=== PATIENT | male | born 1960 | race Caucasian/White ===

== ENCOUNTER 2017-01-21 19:20 | Emergency (ER) | payer SELFPAY ==
[~2017-01-21] VITALS: Ht 167.6 cm; Wt 72.9 kg
[~2017-01-21 19:20] MED LIST: ACID1TAB7 PO; AMLO10TA2 PO; AMLO5TAB2 PO; AMOX1TAB12 PO; ASPI325T17 PO; DOCU-131 PO; FERR325T18 PO; GABA600T2 PO; GLIM4TAB PO; HYDR-3237 PO; HYDR-3343 PO; INSU100I28 SQ-INSULIN; LISI-170 PO; LISI40TA PO; METF10002 PO; METO25TA35 PO; OXYC20TA42 PO; POLY17PO5 PO; SENN1TAB7 PO; SULF-169 PO; TRAM50TA2 PO
[2017-01-21] MEDS ORDERED: HYDROcodone/APAP 10/325 MG TABLET PO STA (19:39)
[2017-01-21] MEDS ORDERED: HYDROmorphone 1 MG/ML, 1ML IVPush PRN (20:00)
[2017-01-21] MEDS ORDERED: LIDOCAINE 1%, 20ML SQ ONE (20:00)
[2017-01-21] MEDS ORDERED: CLINDAMYCIN PMX 600MG/50ML 50 ML IVPB ONE (20:00)
[2017-01-21] MEDS ORDERED: SODIUM CHLORIDE FLUSH 10ML SYR IVF ONE (20:00)
[2017-01-21] MEDS ORDERED: CLINDAMYCIN PMX 600MG/50ML 50 ML ONE (20:06)
[2017-01-21] MEDS ORDERED: HYDROmorphone 1 MG/ML, 1ML ONE (20:06)
[2017-01-21] MEDS ORDERED: ONDANSETRON 2MG/ML, 2ML ONE (20:06)
[2017-01-21 20:08] LABS: HEMATOCRIT 36.5 % (39.2-51.8); HEMOGLOBIN 12.1 g/dL (13.7-18.0); WHITE BLOOD COUNT 14.5 x10^3/uL (3.4-10)
[2017-01-21] MEDS ORDERED: LIDOCAINE 1%, 20ML ONE (20:17)
[2017-01-21 20:19] LABS: BLOOD UREA NITROGEN 11 mg/dL (7-18)
[2017-01-21] MEDS ORDERED: ONDANSETRON 2MG/ML, 2ML IVPush ONE (21:00)
[2017-01-21 21:37] VITALS: BP 154/92
== END 2017-01-21 21:40 | disposition home or self-care (01) ==
LOC: ED 21:15
DX: L03.114 Cellulitis of left upper limb (principal); I10 Essential (primary) hypertension; E11.9 Type 2 diabetes mellitus without complications
CPT/HCPCS: 36415; 80048; 82040; 85025; 96365; 96375; 99284; J1170; J2405

== ENCOUNTER 2017-01-22 13:49 | Emergency (ER) | payer OTHER ==
[~2017-01-22] VITALS: Ht 167.6 cm; Wt 76.2 kg
[2017-01-22 13:50] VITALS: BP 119/75
[2017-01-22] MEDS ORDERED: HYDROcodone/APAP 5/325 TABLET ONE (14:19)
[2017-01-22] MEDS ORDERED: HYDROcodone/APAP 5/325 TABLET PO ONE (14:30)
[2017-01-22] MEDS ORDERED: ONDANSETRON ODT 4 MG ONE (14:39)
[2017-01-22] MEDS ORDERED: ONDANSETRON ODT 4 MG PO ONE (15:00)
== END 2017-01-22 14:46 | disposition home or self-care (01) ==
LOC: ED 14:41
DX: L02.414 Cutaneous abscess of left upper limb (principal); I10 Essential (primary) hypertension; E11.9 Type 2 diabetes mellitus without complications
CPT/HCPCS: 99283

== ENCOUNTER 2017-01-23 08:01 | Emergency (ER) | payer OTHER ==
[~2017-01-23] VITALS: Ht 167.6 cm; Wt 72.7 kg
[2017-01-23 08:11] VITALS: BP 163/97
[2017-01-23] MEDS ORDERED: IBUPROFEN 200 MG TABLET PO ONE (09:00)
[2017-01-23] MEDS ORDERED: HYDROcodone/APAP 5/325 TABLET PO ONE (09:00)
[2017-01-23] MEDS ORDERED: IBUPROFEN 200 MG TABLET ONE (09:04)
[2017-01-23] MEDS ORDERED: HYDROcodone/APAP 5/325 TABLET ONE (09:05)
== END 2017-01-23 09:16 | disposition home or self-care (01) ==
LOC: ED 08:19
DX: L03.114 Cellulitis of left upper limb (principal); I10 Essential (primary) hypertension; E11.9 Type 2 diabetes mellitus without complications
CPT/HCPCS: 99283

== ENCOUNTER 2017-01-24 09:45 | Emergency (ER) | payer OTHER ==
[~2017-01-24] VITALS: Ht 167.6 cm; Wt 75.0 kg
[2017-01-24 11:10] VITALS: BP 182/122
== END 2017-01-24 11:45 | disposition home or self-care (01) ==
LOC: ED 11:38
DX: Z76.0 Encounter for issue of repeat prescription (principal); Z48.01 Encounter for change or removal of surgical wound dressing; I10 Essential (primary) hypertension; E11.9 Type 2 diabetes mellitus without complications
CPT/HCPCS: 99283

== ENCOUNTER 2017-01-26 04:05 | Emergency (ER) | payer OTHER ==
[~2017-01-26] VITALS: Ht 167.6 cm; Wt 75.7 kg
[2017-01-26 06:43] VITALS: BP 204/114
== END 2017-01-26 06:46 | disposition home or self-care (01) ==
LOC: ED 05:38
DX: Z48.01 Encounter for change or removal of surgical wound dressing (principal); Z76.0 Encounter for issue of repeat prescription; E11.9 Type 2 diabetes mellitus without complications; I10 Essential (primary) hypertension
CPT/HCPCS: 93005; 99283

== ENCOUNTER → 2018-01-30 | Outpatient (CLI) | payer MEDICARE ==
[~2018-01-30] MED LIST changes: -AMLO10TA2 PO; +AMLO10TA6 PO; -AMLO5TAB2 PO; +AMLO5TAB7 PO; -SENN1TAB7 PO; +SENN1TAB8 PO
== END | disposition home or self-care (01) ==
LOC: WOUND 08:58
PROVIDERS: ATTEND Family Medicine
DX: T87.89 Other complications of amputation stump (principal); E11.621 Type 2 diabetes mellitus with foot ulcer; L97.511 Non-pressure chronic ulcer of other part of right foot limited to breakdown of skin; L84 Corns and callosities; I10 Essential (primary) hypertension; Y83.5 Amputation of limb(s) as the cause of abnormal reaction of the patient, or of later complication, without mention of misadventure at the time of the procedure
CPT/HCPCS: 97597; 99215

== ENCOUNTER → 2018-02-06 | Outpatient (CLI) | payer MEDICARE | END | disposition home or self-care (01) | LOC: WOUND 10:47 | PROVIDERS: ATTEND Family Medicine | DX: T87.89 Other complications of amputation stump (principal); E11.621 Type 2 diabetes mellitus with foot ulcer; L97.511 Non-pressure chronic ulcer of other part of right foot limited to breakdown of skin; I10 Essential (primary) hypertension; Y83.5 Amputation of limb(s) as the cause of abnormal reaction of the patient, or of later complication, without mention of misadventure at the time of the procedure | CPT/HCPCS: 97597 ==

== ENCOUNTER → 2018-02-13 | Outpatient (CLI) | payer MEDICARE | END | disposition home or self-care (01) | LOC: WOUND 12:54 | PROVIDERS: ATTEND Family Medicine | DX: T87.89 Other complications of amputation stump (principal); E11.621 Type 2 diabetes mellitus with foot ulcer; L97.511 Non-pressure chronic ulcer of other part of right foot limited to breakdown of skin; L84 Corns and callosities; I10 Essential (primary) hypertension; Y83.5 Amputation of limb(s) as the cause of abnormal reaction of the patient, or of later complication, without mention of misadventure at the time of the procedure | CPT/HCPCS: 97597 ==

== ENCOUNTER → 2018-03-13 | Outpatient (CLI) | payer MEDICARE ==
[~2018-03-13] MED LIST changes: +AMLO-150 PO; -AMLO5TAB7 PO
== END | disposition home or self-care (01) ==
LOC: WOUND 13:34
PROVIDERS: ATTEND Family Medicine
DX: T87.89 Other complications of amputation stump (principal); E11.621 Type 2 diabetes mellitus with foot ulcer; L97.512 Non-pressure chronic ulcer of other part of right foot with fat layer exposed; L84 Corns and callosities; I10 Essential (primary) hypertension; Y83.5 Amputation of limb(s) as the cause of abnormal reaction of the patient, or of later complication, without mention of misadventure at the time of the procedure
CPT/HCPCS: 11042

== ENCOUNTER → 2018-03-20 | Outpatient (CLI) | payer MEDICARE | END | disposition home or self-care (01) | LOC: WOUND 14:18 | PROVIDERS: ATTEND Family Medicine | DX: T87.89 Other complications of amputation stump (principal); E11.621 Type 2 diabetes mellitus with foot ulcer; L97.512 Non-pressure chronic ulcer of other part of right foot with fat layer exposed; L84 Corns and callosities; I10 Essential (primary) hypertension; Y83.5 Amputation of limb(s) as the cause of abnormal reaction of the patient, or of later complication, without mention of misadventure at the time of the procedure | CPT/HCPCS: 11042 ==

== ENCOUNTER → 2018-04-10 | Outpatient (CLI) | payer MEDICARE | END | disposition home or self-care (01) | LOC: WOUND 10:56 | PROVIDERS: ATTEND Family Medicine | DX: T87.89 Other complications of amputation stump (principal); E11.621 Type 2 diabetes mellitus with foot ulcer; L97.512 Non-pressure chronic ulcer of other part of right foot with fat layer exposed; L84 Corns and callosities; I10 Essential (primary) hypertension; Y83.5 Amputation of limb(s) as the cause of abnormal reaction of the patient, or of later complication, without mention of misadventure at the time of the procedure | CPT/HCPCS: 11042 ==

== ENCOUNTER 2018-04-17 13:08 | Outpatient (CLI) | payer MEDICARE ==
[~2018-04-17 13:08] MED LIST changes: -AMLO10TA6 PO; +AMLO10TA8 PO; -GABA600T2 PO; +GABA600T7 PO
== END 2018-04-17 23:59 | disposition home or self-care (01) ==
LOC: WOUND 13:08
PROVIDERS: ATTEND Family Medicine
DX: T87.89 Other complications of amputation stump (principal); E11.621 Type 2 diabetes mellitus with foot ulcer; L97.511 Non-pressure chronic ulcer of other part of right foot limited to breakdown of skin; L84 Corns and callosities; I10 Essential (primary) hypertension; Y83.5 Amputation of limb(s) as the cause of abnormal reaction of the patient, or of later complication, without mention of misadventure at the time of the procedure
CPT/HCPCS: 97597

== ENCOUNTER 2018-05-01 12:49 | Outpatient (CLI) | payer MEDICARE | END 2018-05-01 23:59 | disposition home or self-care (01) | LOC: WOUND 12:49 | PROVIDERS: ATTEND Family Medicine | DX: E11.621 Type 2 diabetes mellitus with foot ulcer (principal); L97.511 Non-pressure chronic ulcer of other part of right foot limited to breakdown of skin; L84 Corns and callosities; I10 Essential (primary) hypertension; Z87.891 Personal history of nicotine dependence | CPT/HCPCS: 99214 ==

== ENCOUNTER 2018-05-12 12:59 | Inpatient (IN) | payer MEDICARE ==
[~2018-05-12] VITALS: Ht 167.6 cm; Wt 81.8 kg
[2018-05-12] MEDS ORDERED: SODIUM CHLORIDE FLUSH 10ML SYR IVF ONE (13:30)
[2018-05-12] MEDS ORDERED: SODIUM CHLORIDE 0.9% 1,000ML IVBOLUS ONE (13:30)
--- NOTE | 2018-05-12 13:40 | NUR ---
PT. IS A & O X 4 WITH C/O DIARRHEA AND HYPOTENSION. PT. WAS INCONTINENT OF STOOL. PT. WAS TAKEN TO THE SHOWER TO CLEANSE HIMSELF. UPON COMPLETION PT. RETURNED TO THE ROOM, WAS PLACED ON THE CP MONITOR AND IV ACCESS WAS ESTABLISHED. PT. IS PINK, WARM AND DRY. LUNGS ARE CTA. MM ARE SLIGHTLY DRY. NS BOLUS IS INFUSING. SIDERAILS REMAIN UP X 2 WITH THE CALL LIGHT IN PLACE.
[2018-05-12 13:58] LABS: BASOPHILS # (AUTO) 0.06 x10^3/uL (0-0.1); BASOPHILS % (AUTO) 1 % (0-1); EOSINOPHILS # (AUTO) 0.45 x10^3/uL (0-0.4); EOSINOPHILS % (AUTO) 4 % (1-7); LYMPHOCYTES # (AUTO) 1.95 x10^3/uL (1-3.4); LYMPHOCYTES % (AUTO) 16 % (22-44); MD NO; MEAN CORPUSCULAR HEMOGLOBIN 26.9 pg (27.5-34.5); MEAN CORPUSCULAR HGB CONC 32.3 g/dL (33.2-36.2); MEAN CORPUSCULAR VOLUME 83.2 fL (81-97); MEAN PLATELET VOLUME 9.4 fL (7.4-10.4); MONOCYTES # (AUTO) 0.71 x10^3/uL (0.2-0.8); MONOCYTES % (AUTO) 6 % (2-9); NEUTROPHILS # (AUTO) 8.82 x10^3/uL (1.8-6.8); NEUTROPHILS % (AUTO) 74 % (42-75); PLATELET COUNT 579 x10^3/uL (130-400); RED BLOOD COUNT 3.93 x10^6/uL (4.38-5.82); RED CELL DISTRIBUTION WIDTH 14.8 % (9.4-14.8)
[2018-05-12] MEDS: SODIUM CHLORIDE 0.9% 1,000 ML IV SCH ×3 (14:01→20:33)
[2018-05-12 14:02] LABS: ACETONE, SERUM Negative (Negative)
[2018-05-12 14:10] LABS: ALANINE AMINOTRANSFERASE 29 U/L (12-78); ALBUMIN 3.5 g/dL (3.4-5.0); ANION GAP 10 mmol/L (5-15); CALCIUM 8.4 mg/dL (8.5-10.1); CHLORIDE 105 mmol/L (98-107); CREATININE 2.84 mg/dL (0.7-1.3)
[2018-05-12 14:12] LABS: ALKALINE PHOSPHATASE 118 U/L (45-117); BILIRUBIN,TOTAL 0.2 mg/dL (0.2-1.0); TOTAL PROTEIN 7.7 g/dL (6.4-8.2)
--- NOTE | 2018-05-12 15:19 | NUR ---
PT RESTING IN GURJESSE, LINESHEELA AND LUIZ CHANGED. NOT ENOUGH STOOL FOR SAMPLE. PT EDUCATED TO CALL FOR RN IF HE NEEDS TO GO TO THE RESTROOM TO OBTAIN STOOL SAMPLE
[2018-05-12] MEDS ORDERED: DEXTROSE 4 GM TAB.CHEW PO PRN (16:30)
[2018-05-12] MEDS ORDERED: ACETAMINOPHEN 325 MG TABLET PO PRN (16:30)
[2018-05-12] MEDS ORDERED: DEXTROSE 50%, 50ML SYRINGE IVPush PRN (16:30)
[2018-05-12] MEDS ORDERED: GLUCAGON 1 MG IM PRN (16:30)
[2018-05-12] MEDS ORDERED: ONDANSETRON ODT 4 MG PO PRN (16:30)
[2018-05-12] MEDS ORDERED: ONDANSETRON 2MG/ML, 2ML IVPush PRN (16:30)
[2018-05-12] MEDS ORDERED: hydrALAzine 20 MG/ML, 1ML IVPush PRN (16:30)
[2018-05-12] MEDS ORDERED: LABETALOL 5MG/ML, 20ML IVPush PRN (16:30)
--- NOTE | 2018-05-12 16:38 | NUR ---
PT RESTING IN [facility], HOSPITALIST AT BEDSIDE. BP 104/72
[2018-05-12] MEDS ORDERED: HEPARIN 5,000 UNITS/ML, 1ML ONE (16:41)
[2018-05-12] MEDS: HEPARIN 5,000 UNITS/ML, 1ML SQ SCH (16:53)
[2018-05-12 17:51] VITALS: BP 114/74
[2018-05-12] MEDS ORDERED: GLIM4TAB2 PO (17:56)
[2018-05-12] MEDS ORDERED: LINA5TAB PO (17:56)
[2018-05-12] MEDS ORDERED: METO50TA82 PO (17:56)
[2018-05-12] MEDS ORDERED: AMIT25TA PO (17:56)
[2018-05-12] MEDS ORDERED: DOXA2TAB9 PO (17:56)
[2018-05-12] MEDS ORDERED: ATOR20TA37 PO (17:56)
[2018-05-12 20:19] VITALS: BP 123/77
[2018-05-12] MEDS: SODIUM CHLORIDE FLUSH 10ML SYR IVF SCH (20:33)
[2018-05-12] MEDS: INSULIN LISPRO 100 UNITS/ML, PEN SQ-INSULIN SCH (21:32)
[2018-05-13 00:20] VITALS: BP 124/78
[2018-05-13] MEDS: HEPARIN 5,000 UNITS/ML, 1ML SQ SCH ×3 (00:30→17:28)
[2018-05-13 04:40] LABS: BASOPHILS # (AUTO) 0.05 x10^3/uL (0-0.1); BASOPHILS % (AUTO) 1 % (0-1); EOSINOPHILS % (AUTO) 8 % (1-7); LYMPHOCYTES # (AUTO) 2.27 x10^3/uL (1-3.4); LYMPHOCYTES % (AUTO) 30 % (22-44); MD NO; MEAN CORPUSCULAR HEMOGLOBIN 27.5 pg (27.5-34.5); MEAN CORPUSCULAR HGB CONC 33.2 g/dL (33.2-36.2); MEAN CORPUSCULAR VOLUME 82.7 fL (81-97); MEAN PLATELET VOLUME 9.2 fL (7.4-10.4); MONOCYTES # (AUTO) 0.51 x10^3/uL (0.2-0.8); MONOCYTES % (AUTO) 7 % (2-9); NEUTROPHILS # (AUTO) 4.07 x10^3/uL (1.8-6.8); NEUTROPHILS % (AUTO) 54 % (42-75); PLATELET COUNT 488 x10^3/uL (130-400); RED BLOOD COUNT 3.25 x10^6/uL (4.38-5.82); RED CELL DISTRIBUTION WIDTH 14.5 % (9.4-14.8)
[2018-05-13 04:48] LABS: ALBUMIN 2.7 g/dL (3.4-5.0); ANION GAP 5 mmol/L (5-15); CALCIUM 7.4 mg/dL (8.5-10.1); CHLORIDE 114 mmol/L (98-107)
[2018-05-13 04:51] LABS: ALANINE AMINOTRANSFERASE 22 U/L (12-78); ALKALINE PHOSPHATASE 85 U/L (45-117); BILIRUBIN,TOTAL 0.2 mg/dL (0.2-1.0); CREATININE 2.37 mg/dL (0.7-1.3); TOTAL PROTEIN 5.9 g/dL (6.4-8.2)
[2018-05-13] MEDS: SODIUM CHLORIDE 0.9% 1,000 ML IV SCH ×3 (05:41→19:53)
[2018-05-13] MEDS: INSULIN LISPRO 100 UNITS/ML, PEN SQ-INSULIN SCH ×4 (07:29→19:57)
[2018-05-13 08:03] VITALS: BP 119/64
[2018-05-13 09:43] LABS: MICROSCOPIC NOT IND
[2018-05-13 09:54] LABS: CREATININE,URINE RANDOM 70.8 mg/dL
[2018-05-13] MEDS: SODIUM CHLORIDE FLUSH 10ML SYR IVF SCH ×2 (10:02→20:52)
[2018-05-13 10:03] LABS: CULTURE INDICATED? NO
[2018-05-13] MEDS ORDERED: PHARMACY MAY ADJ FOR RENAL FX MC PRN (15:00)
[2018-05-13 15:30] VITALS: BP 135/80
[2018-05-13] MEDS: IRON SUCROSE COMPLEX 100MG/5ML IV SCH (16:22)
[2018-05-13 20:00] VITALS: BP 154/90
[2018-05-14 01:55] VITALS: BP 150/84
[2018-05-14] MEDS: HEPARIN 5,000 UNITS/ML, 1ML SQ SCH ×2 (02:00→09:53)
[2018-05-14 05:01] LABS: BASOPHILS # (AUTO) 0.03 x10^3/uL (0-0.1); BASOPHILS % (AUTO) 1 % (0-1); EOSINOPHILS # (AUTO) 0.53 x10^3/uL (0-0.4); EOSINOPHILS % (AUTO) 8 % (1-7); LYMPHOCYTES # (AUTO) 1.87 x10^3/uL (1-3.4); LYMPHOCYTES % (AUTO) 27 % (22-44); MD NO; MEAN CORPUSCULAR HEMOGLOBIN 26.4 pg (27.5-34.5); MEAN CORPUSCULAR HGB CONC 32.4 g/dL (33.2-36.2); MEAN CORPUSCULAR VOLUME 81.5 fL (81-97); MEAN PLATELET VOLUME 9.1 fL (7.4-10.4); MONOCYTES # (AUTO) 0.57 x10^3/uL (0.2-0.8); MONOCYTES % (AUTO) 8 % (2-9); NEUTROPHILS # (AUTO) 3.88 x10^3/uL (1.8-6.8); NEUTROPHILS % (AUTO) 56 % (42-75); PLATELET COUNT 531 x10^3/uL (130-400); RED BLOOD COUNT 3.63 x10^6/uL (4.38-5.82); RED CELL DISTRIBUTION WIDTH 14.6 % (9.4-14.8)
[2018-05-14 05:12] LABS: ANION GAP 7 mmol/L (5-15); CHLORIDE 115 mmol/L (98-107); CREATININE 1.62 mg/dL (0.7-1.3)
[2018-05-14] MEDS: INSULIN LISPRO 100 UNITS/ML, PEN SQ-INSULIN SCH ×2 (07:00→10:59)
[2018-05-14 07:14] VITALS: BP 155/89
[2018-05-14] MEDS: SODIUM CHLORIDE 0.9% 1,000 ML IV SCH (08:50)
[2018-05-14] MEDS: SODIUM CHLORIDE FLUSH 10ML SYR IVF SCH (09:00)
[2018-05-14] MEDS ORDERED: POLYETHYLENE GLYCOL 17 GM PACKET PO SCH (09:00)
[2018-05-14] MEDS ORDERED: DOCUSATE 100 MG CAPSULE PO SCH (09:00)
[2018-05-14] MEDS ORDERED: FERR325T16 PO (09:07)
[2018-05-14] MEDS: IRON SUCROSE COMPLEX 100MG/5ML IV SCH (09:53)
== END 2018-05-14 11:20 | disposition home or self-care (01) | DRG 683 ==
LOC: ED 14:01 → INTOOBSV 14:30 → EDIP 14:30 → 3NW 17:02 → OBSVTOIN 05-13 15:12
PROVIDERS: ADMIT Hospitalist; ATTEND Hospitalist
DX: N17.9 Acute kidney failure, unspecified (principal); E87.1 Hypo-osmolality and hyponatremia; E87.2 Acidosis; F17.200 Nicotine dependence, unspecified, uncomplicated; I10 Essential (primary) hypertension; F12.90 Cannabis use, unspecified, uncomplicated; E86.0 Dehydration; E11.9 Type 2 diabetes mellitus without complications; R19.7 Diarrhea, unspecified; D64.9 Anemia, unspecified; Z89.612 Acquired absence of left leg above knee
CPT/HCPCS: 36415; 76770; 80048; 80053; 81003; 82010; 82436; 82570; 82728; 82962; 83540; 83550; 83735; 84100; 84133; 84300; 84466; 85025; 93005; 99285; G0378; J1644; J1756; J1815; J7030

== ENCOUNTER 2018-05-15 10:38 | Outpatient (CLI) | payer MEDICARE ==
[~2018-05-15 10:38] MED LIST changes: +AMIT25TA PO; +ATOR20TA37 PO; +DOXA2TAB9 PO; +FERR325T16 PO; +GLIM4TAB2 PO; +LINA5TAB PO; +METO50TA82 PO
== END 2018-05-15 23:59 | disposition home or self-care (01) ==
LOC: WOUND 10:38
PROVIDERS: ATTEND Family Medicine
DX: E11.621 Type 2 diabetes mellitus with foot ulcer (principal); L97.511 Non-pressure chronic ulcer of other part of right foot limited to breakdown of skin; I10 Essential (primary) hypertension; L84 Corns and callosities; Z87.891 Personal history of nicotine dependence
CPT/HCPCS: 99213

== ENCOUNTER → 2018-07-20 | Outpatient (CLI) | payer MEDICARE ==
[~2018-07-20] MED LIST changes: +SENN-177 PO; -SENN1TAB8 PO
== END | disposition home or self-care (01) ==
LOC: WOUND 13:02
PROVIDERS: ATTEND Internal Medicine
DX: I87.331 Chronic venous hypertension (idiopathic) with ulcer and inflammation of right lower extremity (principal); E11.622 Type 2 diabetes mellitus with other skin ulcer; L97.212 Non-pressure chronic ulcer of right calf with fat layer exposed; E11.621 Type 2 diabetes mellitus with foot ulcer; L97.511 Non-pressure chronic ulcer of other part of right foot limited to breakdown of skin; E11.65 Type 2 diabetes mellitus with hyperglycemia; Z89.512 Acquired absence of left leg below knee; Z98.49 Cataract extraction status, unspecified eye; Z89.421 Acquired absence of other right toe(s)
CPT/HCPCS: 97597; G0463

== ENCOUNTER → 2018-07-27 | Outpatient (CLI) | payer MEDICARE | END | disposition home or self-care (01) | LOC: WOUND 09:33 | PROVIDERS: ATTEND Internal Medicine | DX: I87.331 Chronic venous hypertension (idiopathic) with ulcer and inflammation of right lower extremity (principal); E11.622 Type 2 diabetes mellitus with other skin ulcer; L97.212 Non-pressure chronic ulcer of right calf with fat layer exposed; E11.621 Type 2 diabetes mellitus with foot ulcer; L97.511 Non-pressure chronic ulcer of other part of right foot limited to breakdown of skin; E11.65 Type 2 diabetes mellitus with hyperglycemia; Z89.512 Acquired absence of left leg below knee; Z98.49 Cataract extraction status, unspecified eye; Z89.421 Acquired absence of other right toe(s) | CPT/HCPCS: 11042 ==

== ENCOUNTER → 2018-08-14 | Outpatient (CLI) | payer MEDICARE | END | disposition home or self-care (01) | LOC: WOUND 13:20 | PROVIDERS: ATTEND Family Medicine | DX: E11.621 Type 2 diabetes mellitus with foot ulcer (principal); I87.331 Chronic venous hypertension (idiopathic) with ulcer and inflammation of right lower extremity; L97.511 Non-pressure chronic ulcer of other part of right foot limited to breakdown of skin; E11.622 Type 2 diabetes mellitus with other skin ulcer; L97.212 Non-pressure chronic ulcer of right calf with fat layer exposed; E11.65 Type 2 diabetes mellitus with hyperglycemia; L84 Corns and callosities; Z89.411 Acquired absence of right great toe; Z89.421 Acquired absence of other right toe(s); Z89.512 Acquired absence of left leg below knee | CPT/HCPCS: 97597 ==

== ENCOUNTER → 2018-09-15 | Outpatient (CLI) | payer MEDICARE | END | disposition home or self-care (01) | LOC: WOUND 13:49 | PROVIDERS: ATTEND Nurse Practitioner Family | DX: T87.89 Other complications of amputation stump (principal); E11.621 Type 2 diabetes mellitus with foot ulcer; I87.331 Chronic venous hypertension (idiopathic) with ulcer and inflammation of right lower extremity; L97.511 Non-pressure chronic ulcer of other part of right foot limited to breakdown of skin; E11.622 Type 2 diabetes mellitus with other skin ulcer; L97.212 Non-pressure chronic ulcer of right calf with fat layer exposed; E11.65 Type 2 diabetes mellitus with hyperglycemia; L84 Corns and callosities; Z89.411 Acquired absence of right great toe; Z89.421 Acquired absence of other right toe(s); Z89.512 Acquired absence of left leg below knee; Y83.5 Amputation of limb(s) as the cause of abnormal reaction of the patient, or of later complication, without mention of misadventure at the time of the procedure | CPT/HCPCS: 97597 ==

== ENCOUNTER → 2018-10-14 | Outpatient (CLI) | payer MEDICARE | END | disposition home or self-care (01) | LOC: WOUND 13:13 | PROVIDERS: ATTEND Nurse Practitioner Family | DX: T87.89 Other complications of amputation stump (principal); E11.621 Type 2 diabetes mellitus with foot ulcer; I87.331 Chronic venous hypertension (idiopathic) with ulcer and inflammation of right lower extremity; L97.518 Non-pressure chronic ulcer of other part of right foot with other specified severity; L84 Corns and callosities; E11.65 Type 2 diabetes mellitus with hyperglycemia; Z89.411 Acquired absence of right great toe; Z89.421 Acquired absence of other right toe(s); Z89.512 Acquired absence of left leg below knee; Y83.5 Amputation of limb(s) as the cause of abnormal reaction of the patient, or of later complication, without mention of misadventure at the time of the procedure | CPT/HCPCS: G0463 ==

== ENCOUNTER 2018-11-14 13:11 | Emergency (ER) | payer MEDICARE ==
[~2018-11-14] VITALS: Ht 167.6 cm; Wt 91.8 kg
[2018-11-14 13:19] VITALS: BP 138/89
== END 2018-11-14 16:11 | disposition home or self-care (01) ==
LOC: ED 15:02
DX: S30.1XXA Contusion of abdominal wall, initial encounter (principal); J81.0 Acute pulmonary edema; R09.02 Hypoxemia; D53.9 Nutritional anemia, unspecified; I10 Essential (primary) hypertension; E11.9 Type 2 diabetes mellitus without complications; W06.XXXA Fall from bed, initial encounter; Y93.89 Activity, other specified; Y92.098 Other place in other non-institutional residence as the place of occurrence of the external cause; Y99.8 Other external cause status
CPT/HCPCS: 36415; 71045; 74176; 80053; 85025; 99284

== ENCOUNTER → 2019-04-26 | Outpatient (CLI) | payer MEDICARE ==
[~2019-04-26] MED LIST changes: +AMOX1TAB64 PO; +FERR324T18 PO; +FURO40TA6 PO; -GLIM4TAB2 PO; +GLIM4TAB4 PO; +LOSA50TA14 PO
== END | disposition home or self-care (01) ==
LOC: CFH 15:37
PROVIDERS: ATTEND Physician Assistant Medical
DX: I34.0 Nonrheumatic mitral (valve) insufficiency (principal); I42.0 Dilated cardiomyopathy; I11.9 Hypertensive heart disease without heart failure; E11.9 Type 2 diabetes mellitus without complications; E78.5 Hyperlipidemia, unspecified; R06.02 Shortness of breath
CPT/HCPCS: 93306